=== PATIENT | male | born 1945 | race Caucasian/White ===

== ENCOUNTER 2022-05-04 15:57 | Outpatient (CLI) | payer MEDICARE, SELFPAY ==
[2022-05-04 10:13] LABS: Creatinine Urine 70.6 mg/dL
[2022-05-04 10:56] LABS: Chloride* 105 mmol/L (96-114)
[2022-05-04 10:57] LABS: Albumin* 3.4 g/dL (3.3-5.0); Sodium* 140 mmol/L (135-149)
[2022-05-04 10:58] LABS: Potassium* 3.6 mmol/L (3.6-5.1)
[2022-05-04 11:00] LABS: Alkaline Phosphatase* 75 U/L (40-150); Aspartate Amino Transferase* 23 U/L (12-35); Bilirubin Total* 0.7 mg/dL (0.1-1.5); Blood Urea Nitrogen* 23 mg/dL (7-30); Carbon Dioxide* 27 mmol/L (20-32); Cholesterol* 139 mg/dL (90-199); Creatinine* 1.6 mg/dL (0.5-1.5); Estimated Glomerular Filt Rate 45 ml/min; Total Protein* 6.5 g/dL (6.0-8.3)
[2022-05-04 11:01] LABS: Alanine Aminotransferase* 12 U/L (4-50); Glucose* 155 mg/dL (60-115); HDL Cholesterol* 26 mg/dL (>=40); LDL Cholesterol Calculated 67 mg/dL (<100); Triglycerides* 228 mg/dL (40-149)
[2022-05-04 11:31] LABS: PSA Screen* 0.86 ng/mL (0.10-4.00)
[2022-05-04 12:23] LABS: Microalbumin Creatinine Ratio 16920 mg/g (0-30); Microalbumin Urine 1195 mg/dL
== END 2022-05-04 15:58 | disposition home or self-care (01) ==
PROVIDERS: PCP Family Medicine; Visit Provider Family Medicine
DX: E78.5 Hyperlipidemia, unspecified (principal); E11.9 Type 2 diabetes mellitus without complications; Z12.5 Encounter for screening for malignant neoplasm of prostate; Z11.1 Encounter for screening for respiratory tuberculosis
CPT/HCPCS: 80053; 80061; 82043; 82570; 84153; 86480

== ENCOUNTER 2022-06-17 09:36 | Outpatient (CLI) | payer MEDICARE, SELFPAY ==
[2022-06-17 13:05] LABS: Chloride* 106 mmol/L (96-114)
[2022-06-17 13:06] LABS: Albumin* 4.2 g/dL (3.3-5.0); Potassium* 3.9 mmol/L (3.6-5.1); Sodium* 140 mmol/L (135-149)
[2022-06-17 13:08] LABS: Carbon Dioxide* 23 mmol/L (20-32); Creatinine* 1.7 mg/dL (0.5-1.5); Estimated Glomerular Filt Rate 42 ml/min
[2022-06-17 13:09] LABS: Blood Urea Nitrogen* 31 mg/dL (7-30); Calcium* 9.9 mg/dL (8.4-10.6); Glucose* 150 mg/dL (60-115); Phosphorus* 3.7 mg/dL (2.5-4.5)
== END 2022-06-17 09:37 | disposition home or self-care (01) ==
PROVIDERS: PCP Family Medicine; Visit Provider Internal Medicine Nephrology
DX: N18.32 Chronic kidney disease, stage 3b (principal)
CPT/HCPCS: 80069

== ENCOUNTER 2022-06-23 19:05 | Outpatient (CLI) | payer MEDICARE, SELFPAY ==
[2022-06-23 18:55] LABS: Creatinine Urine 56.8 mg/dL
[2022-06-23 19:09] LABS: Total Protein Urine 333 mg/dL
[2022-06-23 20:06] LABS: Collection Time Urine 24 Hours; Total Protein 24 Hour Urine 6327 mg/dL; Total Volume 24 Hour Urine 1900 ml; Urine Creatinine mg/24 Hour 0 mg/Day
== END 2022-06-23 19:06 | disposition home or self-care (01) ==
PROVIDERS: PCP Family Medicine; Visit Provider Internal Medicine Nephrology
DX: N18.30 Chronic kidney disease, stage 3 unspecified (principal)
CPT/HCPCS: 84156

== ENCOUNTER 2023-01-04 09:25 | Outpatient (CLI) | payer MEDICARE, SELFPAY | END 2023-01-04 09:26 | disposition home or self-care (01) | LOC: NFLDREF 01-05 05:57 | PROVIDERS: PCP Family Medicine; Referring Provider Family Medicine; Visit Provider Internal Medicine Nephrology | DX: I12.9 Hypertensive chronic kidney disease with stage 1 through stage 4 chronic kidney disease, or unspecified chronic kidney disease (principal); N18.32 Chronic kidney disease, stage 3b; E11.22 Type 2 diabetes mellitus with diabetic chronic kidney disease; R80.9 Proteinuria, unspecified; R82.71 Bacteriuria | CPT/HCPCS: 80069; 82043; 82570; 87086; 87186 ==

== ENCOUNTER 2023-06-09 12:50 | Outpatient (CLI) | payer MEDICARE, SELFPAY ==
--- OUTSIDE RECORDS SUMMARY | 2023-06-09 12:53 | XMS_ITS | Continuity of Care Document ---
Author Name Unknown Organization [facility] Address [address] [place] [address] Phone Care Team Providers Care Patient Manager Name Role Phone Mack Pandey MD Unavailable Unavailable Allergies, Adverse Reactions, Alerts Substance Reaction Status Criticality CEPHALEXIN MONOHYDRATE Dizziness Active No In formation Medications Medication Instructions Dosage Effective Dates (start - stop) Status Comments HUMIRA (unknown strength) Not Available - Active ASPIRIN (unknown strength) Not Available - Active NAPROXEN (unknown strength) Not Available - Active ATORVASTATIN CALCIUM (unknown strength) Not Available - Active LISINOPRIL-HYDROCHLO ROTHIAZIDE (unknown strength) Not Available - Active OMEPRAZOLE (unknown strength) Not Available - Active METFORMIN HCL (unknown strength) Not Available - Active FOLIC ACID (unknown strength) Not Available - No Longer Active LEVITRA (unknown strength) Not Available - No Longer Active TRAMADOL HCL (unknown strength) Not Available - No Longer Active METHOTREXATE (unknown strength) Not Available - No Longer Active Procedures Procedure Date Office/Outpatient Visit,Est, Mod 2017 Office/Outpatient Visit,Est, Mod 2017 Postop Followup Visit Remove Lumbar Spine Lamina, 1 Seg Remove Added Spine Lamina, 1 Seg 2015 Pa Assist Remove Lumbar Spine Lamina, 1 Seg Pa Assist Remove Added Spine Lamina, 1 S eg Office/Outpatient Visit,New, Mod 2015 X-Ray Exam Lwr Spine, Min 4 Views Advance Directives Directive Yes / No Effective Date File Name No Information Encounters Encounter Description Practice Location Reason(s) For Visit Diagnoses Date Provider Providers Copied on Encounter Office/Outpa tient Visit,Est, Mod [facility], [address], [place], [place], [id number] , [place] tel:[phone] [facility] Disorder of peripheral nervous system NOS 8 Transfeldt Ensor. [facility], [address], [facility] [address], [place], [id number], [place]. [phone] Referring Provider: Mack Spain, [facility] [place] [address], [place] [address], [place], [address]. tel:[phone] [facility], [address], [place], [place], [id number] , [place] tel:[phone] [facility] [place] Spinal stenosis, lumbar regionEncount er for other specified surgical aftercare Gloria Chavez. [facility], [address] [place] [address] [address], [place], [address], [place]. tel:[phone] Referring Provider: Mack Spain, [facility] [address], [facility] [address], [place], [address]. tel:[phone] [facility], [address], [place], [place], [id number] , [place] tel:[phone] [facility] No Information 6 Transfeldt Ensor. [facility] [place], [address], [place] [address], [place], [id number], [place]. tel:[phone] Referring Provider: Mack Spain, [facility] [place] [address], [address], [place], [address]. tel:[phone] Office/Outpa tient Visit,New, Mod [facility], [address], [facility], [place], [id number] , [place] tel:[phone] [facility] [place] Spinal stenosis, lumbar region 6 Transfeldt Ensor. [facility], [address], [place] [address], [place], [place], [id number], [place]. tel:[phone] Referring Provider: Colin Mcpherson [address] [place], [address]. tel:[phone] Family History Family Member Type Diagnosis Age At Onset No Information Payers Payer name Insurance type Covered republican [place] [id number] Medicare Colin [id number] 1 Social History Type Description Quantity Date Captured Comments Alcohol Use Details Caffeine Use Details Tobacco Use Status Never smoked tobacco 2017 Smoking Status Never smoker Sex Male Vital Signs Date / Time: Height Weight BMI Pulse Rate Blood Pressure Temperature Respiratory Rate Body Surface Area Head Circumference Head Circ. Percentile Wt./Kiran. Percentile BMI percentile Pulse Ox Inhaled Ox 12:57 PM 66.00 in 87.815 kg (193.60 lbs) 30.7 8 kg/m eter (2) 72 /min 136/59 mm[Hg] Chief Complaint And Reason For Visit No Information Reason For Referral Reason For Referral No Information Plan Of Treatment Date Type Action Status Future Order: Radiology Order AP /Lat/Flex/Ext Lumb (APLatFlExL), Ordered on: Ordered History Of Present Illness Encounter Date Complaint History Of Prese nt Illness No Information Functional Status Date Functional Assessmen t No Information Instructions Date Instruction Additional Infor mation Weight Management Education Rela neelima to Overweight Weight management: I nstructed to return to General Practitioner timeframe: 1 Month. Related to Overweight Weight Management Education Rela neelima to Overweight Weight management: I nstructed to return to General Practitioner timeframe: 1 Month. Related to Overweight Assessments Type Assessment Date No Information Patient Care Teams Name Effective Dates (start - stop) Status Members No Information
== END 2023-06-09 12:51 | disposition home or self-care (01) ==
LOC: RAD 12:51
PROVIDERS: PCP Family Medicine; Visit Provider Family Medicine
DX: R55 Syncope and collapse (principal); I51.7 Cardiomegaly; I34.0 Nonrheumatic mitral (valve) insufficiency; I07.1 Rheumatic tricuspid insufficiency; R42 Dizziness and giddiness; I48.91 Unspecified atrial fibrillation
CPT/HCPCS: 93306

== ENCOUNTER 2023-06-11 09:09 | Outpatient (CLI) | payer MEDICARE, SELFPAY ==
--- OUTSIDE RECORDS SUMMARY | 2023-06-11 15:45 | XMS_ITS | Continuity of Care Document ---
Author Name Unknown Organization [facility] Address [address] [place] [address] Phone Care Team Providers Care Metal Fence Erector Name Role Phone Mack Pandey MD Unavailable Unavailable Allergies, Adverse Reactions, Alerts Substance Reaction Status Criticality CEPHALEXIN MONOHYDRATE Dizziness Active No In formation Medications Medication Instructions Dosage Effective Dates (start - stop) Status Comments HUMIRA (unknown strength) Not Available - Active METFORMIN HCL (unknown strength) Not Available - Active OMEPRAZOLE (unknown strength) Not Available - Active LISINOPRIL-HYDROCHLO ROTHIAZIDE (unknown strength) Not Available - Active ATORVASTATIN CALCIUM (unknown strength) Not Available - Active NAPROXEN (unknown strength) Not Available - Active ASPIRIN (unknown strength) Not Available - Active METHOTREXATE (unknown strength) Not Available - No Longer Active TRAMADOL HCL (unknown strength) Not Available - No Longer Active LEVITRA (unknown strength) Not Available - No Longer Active FOLIC ACID (unknown strength) Not Available [...] Visit,Est, Mod [facility], [address], [place], [place], [id number] , [place] tel:[phone] [facility] - [place] Disorder of peripheral nervous system NOS 8 Transfeldt Ensor. [facility], [address], [facility] [address], [place], [id number], [place]. [phone] Referring Provider: Mack Spain, [facility] [place] [address], [place] [address], [address]. tel:[phone] [facility], [address], [place], [place], [id number] , [place] tel:[phone] [facility] [place] Spinal stenosis, lumbar regionEncount er for other specified surgical aftercare Gloria Chavez. [facility], [address] [place] [address] [address], [address], [place]. tel:[phone] Referring Provider: Mack Spain, [facility] [address], [facility] [address], [address]. tel:[phone] [facility], [address], [place], [place], [id number] , [place] tel:[phone] [facility] No Information 6 Transfeldt Ensor. [facility] [place], [address], [place] [address], [place], [id number], [place]. tel:[phone] Referring Provider: Mack Spain, [facility] [place] [address], [address], [place], [address]. tel:[phone] Office/Outpa tient Visit,New, Mod [facility], [address], [facility] [place], [id number] , [place] tel:[phone] [facility] [place] Spinal stenosis, lumbar region 6 Transfeldt Ensor. [facility], [address], [place] [address], [place], [place], [id number], [place]. tel:[phone] Referring Provider: Colin Mcpherson [address] [place], [address]. tel:[phone] Family History Family Member Type Diagnosis Age At Onset No Information Payers Payer name Insurance type Covered libertarian [place] [id number] Medicare Colin [id number] 1 Social History Type Description Quantity Date [...]
== END 2023-06-11 09:10 | disposition home or self-care (01) ==
LOC: NFLDREF 15:44
PROVIDERS: PCP Family Medicine; Referring Provider Family Medicine; Visit Provider Internal Medicine Nephrology
DX: E78.5 Hyperlipidemia, unspecified (principal); E11.22 Type 2 diabetes mellitus with diabetic chronic kidney disease; I12.9 Hypertensive chronic kidney disease with stage 1 through stage 4 chronic kidney disease, or unspecified chronic kidney disease; I10 Essential (primary) hypertension; R82.90 Unspecified abnormal findings in urine
CPT/HCPCS: 80053; 80061; 82043; 82310; 82570; 82728; 83540; 83550; 83970; 84100; 84153; 84550; 87086

== ENCOUNTER 2024-01-14 10:00 | Outpatient (CLI) | payer MEDICARE, SELFPAY ==
--- OUTSIDE RECORDS SUMMARY | 2024-01-17 19:00 | XMS_ITS | Clinical Summary ---
Author Name Unknown Organization [facility] Address [place], [place] [address] Care Team Providers Care Clinical Faculty Name Role Phone Shaka Naranjo MD Unavailable Keon Gregorio MD Primary Care Provider [phone] Allergies Active Allergy Reactions Criticality Noted Date Comments Cephalexin Dizziness 04/23/2010 Tetracycline *Unknown 06/09/2016 Pt states feels hot Medications Medication Sig Dispensed Refills Start Date End Date Status blood-glucose meter Dispense glucose meter, test strips and lancets covered by the patient insurance. Test 1 times per day. 1 Device 0 06/15/2013 Active atorvastatin (LIPITOR) 40 mg tabletIndications:H yperlipidemia Take 1 tablet by mouth once daily. 90 tablet 3 06/21/2015 Active metFORMIN (GLUCOPHAGE) 500 mg tabletIndications:D iabetes mellitus without complication (HC) Take 1 tablet by mouth 2 times daily with meals. 180 tablet 1 06/21/2015 Active clobetasol 0.05% TOPICAL (TEMOVATE) 0.05 % external solution 12/25/2015 Active betamethasone,augme nted dipropionate 0.05% (DIPROLENE LOTION 0.05%) lotion 09/27/2015 Active lisinopril-hydrochl orothiazide, 20-25 mg, (PRINZIDE, ZESTORETIC) 20-25 mg per tabletIndications:E ssential hypertension TAKE ONE TABLET BY MOUTH ONE TIME DAILY 90 tablet 0 06/01/2016 Active Cholecalciferol, Vitamin D3, 2,000 unit tablet Take 2,000 Units by mouth once daily. Active tamsulosin (FLOMAX) 0.4 mg capsuleIndications: BPH (benign prostatic hypertrophy) with urinary retention Take 1 capsule by mouth once daily after a meal. 30 capsule 11 06/17/2016 Active omeprazole (PRILOSEC) 40 mg Delayed-Release capsuleIndications: Gastroesophageal reflux disease without esophagitis TAKE ONE CAPSULE BY MOUTH ONE TIME DAILY BEFORE A MEAL 90 capsule 08/16/2016 Active triamcinolone 0.025% topical (ARISTOCORT) 0.025 % cream two times daily. 07/16/2021 Active neomycin-polymyxin- dexAMETHasone (MAXITROL) ophthalmic ointment APPLY TOPICALLY TO BOTH UPPER EYELIDS NEEDED 06/18/2022 Active ketoconazole 2% shampoo (NIZORAL) 2 % shampoo 1 APPLIC TOPICALLY TWICE A WEEK 06/16/2022 Active cyanocobalamin (VITAMIN B12) 500 mcg tablet once daily. Active cloNIDine HCL (CATAPRES) 0.1 mg tablet Take 0.1 mg by mouth two times daily. 05/06/2022 Active adalimumab 40 mg/0.4 mL pnkt Inject subcutaneous once daily. Active ibuprofen (ADVIL; MOTRIN) 600 mg tabletIndications:C arpal tunnel syndrome of left wrist Take 1 Tablet (600 mg) by mouth every 6 hours if needed for Pain. Maximum of 3200 mg in 24 hours. 30 Tablet 01/13/2023 Active Xarelto 20 mg tabletIndications:P ersistent atrial fibrillation (HC) TAKE 1 TABLET BY MOUTH EVERY DAY 90 Tablet 08/02/2023 Active Active Problems Problem Noted Date Diagnosed Date Carpal tunnel syndrome of left wrist 01/12/2023 Benign non-nodular prostatic hyperplasia with lower urinary tract symptoms 06/22/2016 Lumbar spinal stenosis 06/10/2016 HTN (hypertension) 06/10/2016 Controlled type 2 diabetes m ellitus without complication, without long-term current use of insulin 06/10/2016 Urethral stricture unspecified 06/10/2016 Routine adult health maintenance 08/08/2015 Overview: Colonoscopy 08/2015 normal repeat in 10 years Psoriasis 02/12/2012 Psoriatic arthritis 02/12/2012 REFUGIO (obstructive sleep apnea) 02/12/2012 Periodic limb movement disorder (PLMD) 2 Obesity, unspecified 12/10/2006 Other and unspecified hyperlipidemia 12/10/2006 Unspecified essential hypertension 12/10/2006 Esophageal reflux 12/10/2006 Encounters Date Type Department Care Team Description 01/13/2024 9:00 AM CDT Office Visit [facility] [address] [place] [address] Alli Tristan MD Arrived from Last 3 Months Immunizations Name Administration Dates Next Due Influenza A (H1N1), Inactiva neelima (Age >=3 Years) 10/10/2009 Influenza, High-dose Inactivated 05/28/2015,03/2014 Influenza, IIV3 (Age >=3 years) 06/15/20 13,06/22/2012,06/02/2011,2010,05/28/2009,07/10/2008,06/07/2007 Pneumococcal Poly,23-Valent (Pneumovax) 11/24/2011,06/06/1997 Pneumococcal conj 13-Valent (Prevnar 13) 02/08/2015 Td (Age >=7 Years) 09/06/2005,03/06/1997 Tdap 06/02/2011 Family History Medical History Relation Name Comments Anesthesia Problem Neg. 1 Cancer-colon Neg. 2 Cancer-prostate Neg. 3 Heart Disease Neg. 4 Relation Name Status Comments Neg. 1 Neg. 2 Neg. 3 Neg. 4 Social History Tobacco Use Types Packs/Day Years Used Date Smoking Tobacco: Never Smokeless Tobacco: Never Tobacco Cessation:Counseling Given: Yes Alcohol Use Standard Drinks/Week Comments Yes 0 (1 standard drink = 0.6 oz pur e alcohol) 1 to 2 drinks per day. Social Connections Answer Date Recorded Frequency of Communication with Friends and Fami ly Not on file 01/09/2022 Sex and Gender Information Value Date Recorded Sex Assigned at Not on file Gender Identity Not on file Sexual Orientation Not on file Obstetrics History Last Filed Vital Signs Vital Sign Reading Time Taken Comments Blood Pressure 160/84 01/13/2023 10:32 AM CDT Pulse 53 01/13/2023 10:32 AM CDT Temperature 37 ??C (98.6 ??F) 01/13/2023 10: 02 AM CDT Respiratory Rate 18 01/13/2023 10:3 2 AM CDT Oxygen Saturation 98% 01/13/2023 10: 32 AM CDT Inhaled Oxygen Concentration - - Weight 78.3 kg (172 lb 11.2 oz) 01/13/2023 8:08 AM CDT Height 168.9 cm (5' 6.5) 06/10/2016 7:37 PM CDT Body Mass Index 27.46 06/10/2016 7:37 PM CDT Plan of Treatment Health Maintenance Due Date Last Done Comments Depression screening for age 12+ 1958 Hepatitis C screening for ag e 18-79 1964 Zoster (shingles) series for age 50+ (1 of 2) 1965 Medicare Wellness for age 65+ 2011 BMI (ht and wt on same day) for age 18+ 12/25/2016 12/26/2015 Tetanus booster 06/02/2021 06/02/2011, 09/2005, 03/06/1997 COVID-19 vaccine series ( season) 2023 06/03/2021, 01/17/2021, 12/27/2020 Influenza for age 65+ 05/07/2024 05/28/2015 , 06/12/2014, 06/15/2013, Additional history exists Tdap Completed 06/02/2011 Pneumococcal series for age 65+ Completed 02/08/2015, 11/24/2011, 06/06/1997 Advance Directives * Full Code (Latest Code Status on File) Date Activated Date Inactivated Comments 01/13/2023 6:52 AM 01/13/2023 1:46 PM Question Answer Comments Code Status Discussion: Not Discussed * Full Code Date Activated Date Inactivated Comments 06/10/2016 4:19 PM 06/12/2016 6:48 PM * Full Code Date Activated Date Inactivated Comments 06/10/2016 8:59 AM 06/10/2016 4:19 PM Question Answer Comments Code Status Discussion: Not Discussed Care Teams Clinical Faculty Relationship Specialty Start Date End Date Keon Gregorio MD PCP - General Family Practice 05/05/16 Shaka Naranjo MD Rheumatology Rheumatology 08/22/12
--- OUTSIDE RECORDS SUMMARY | 2024-01-17 19:00 | XMS_ITS | Continuity of Care Document ---
Author Name Unknown Organization [facility] Address [address] [place] [address] Phone Care Team Providers Care Administrative Technician Name Role Phone Mack Pandey MD Unavailable Unavailable Allergies, Adverse Reactions, Alerts Substance Reaction Status Criticality CEPHALEXIN MONOHYDRATE Dizziness Active No In formation Medications Medication Instructions Dosage Effective Dates (start - stop) Status Comments HUMIRA (unknown strength) Not Available - Active NAPROXEN (unknown strength) Not Available - Active ASPIRIN (unknown strength) Not Available - Active METFORMIN HCL (unknown strength) Not Available - Active OMEPRAZOLE (unknown strength) Not Available - Active LISINOPRIL-HYDROCHLO ROTHIAZIDE (unknown strength) Not Available - Active ATORVASTATIN CALCIUM (unknown strength) Not Available - Active LEVITRA (unknown strength) Not Available - [...] Visit,Est, Mod [facility], [address], [place], [place], [id number] , [place] tel:[phone] [facility] Disorder of peripheral nervous system NOS 8 Transfeldt Ensor. [facility], [address], [facility] [address], [place], [id number], [place]. [phone] Referring Provider: Mack Spain, [facility] [place] [address], [place] [address], [place], [address]. tel:[phone] [facility], [address], [place], [place], [id number] , [place] tel:[phone] [facility] Spinal stenosis, lumbar regionEncount er for other specified surgical aftercare Gloria Chavez. [facility], [address] [place] [address] [address], [place], [address], [place]. tel:[phone] Referring Provider: Mack Spain, [facility] [address], [facility] [address], [place], [address]. tel:[phone] [facility], [address], [place], [place], [id number] , [place] tel:[phone] [facility] No Information 6 Transfeldt Ensor. [facility] [place], [address], [place] [address], [place], [address], [place]. tel:[phone] Referring Provider: Mcak Spain, [facility] [place] [address], [address], [place], [address]. tel:[phone] Office/Outpa tient Visit,New, Mod [facility], [address], [facility], [place], [id number] , [place] tel:[phone] [facility] Spinal stenosis, lumbar region 6 Transfeldt Ensor. [facility], [address], [facility] [address], [place], [place], [id number], [place]. tel:[phone] Referring Provider: Ismael Dominguez, Colin [facility] [address], [place], [address]. tel:[phone] Family History Family Member Type Diagnosis Age At Onset No Information Payers Payer name Insurance type Covered democrat [place] [id number] Medicare Colin [id number] 1 Social History Type Description Quantity Date [...]
--- OUTSIDE RECORDS SUMMARY | 2024-01-17 19:00 | XMS_ITS | Referral Summary ---
Author Name Unknown Organization [facility] Address [address] [place] [address] Care Team Providers Care Music Cataloguer Name Role Phone Unavailable Primary Care Provider Unavailabl e Source Comments Patient records contain information from all sites at [facility]. For routine questions regarding patient records, call [phone] during business hours, M-F 8:00 AM - 5:00 PM Central Time. Record requests for emergency care only can be directed to [phone] at any time.[facility] Allergies Active Allergy Reactions Criticality Noted Date Comments Cephalexin Other (see comments) 04/23/2010 Tetracycline Other (see comments),Rash 06/09/2016 Pt states feels hot Pt states feels hot Medications Medication Sig Dispensed Refills Start Date End Date Status aspirin [address] tablet Take by mouth. Active atorvastatin (LIPITOR) 40 mg tablet Take 40 mg by mouth. 06/21/2015 Active adalimumab, citrate free, (HUMIRA PEN) 40 mg/0.4 mL injection Inject under the skin. Active miscellaneous medical supply misc Once 02/07/2018 Active albuterol 90 mcg/actuation inhaler Inhale 2 puffs. 08/19/2018 Active betamethasone, augmented, (DIPROLENE) 0.05 % lotion 09/27/2015 Active blood-glucose meter kit Dispense glucose meter, test strips and lancets covered by the patient insurance. Test 1 times per day. 06/15/2013 Active cholecalciferol (VITAMIN D3) 50 mcg (2,000 Unit) tablet Take 2,000 Units by mouth. Active clobetasoL (TEMOVATE) 0.05 % external solution Twice A Day 12/25/2015 Active cloNIDine (CATAPRES) 0.1 mg tablet 01/29/2022 Active codeine-guaiFENesi n (ROBITUSSIN-AC) 10-100 mg/5 mL liquid Take 10 mL by mouth. 08/22/2018 Active cyanocobalamin (VITAMIN B12) 500 mcg tablet daily. Active fexofenadine (MERCED) 180 mg tablet Daily 08/01/2019 Active gabapentin (NEURONTIN) 300 mg capsule Take 300 mg by mouth daily. 07/05/2017 Active ketoconazole (NIZORAL) 2 % shampoo Once 05/27/2021 Active lisinopril-hydroCH LOROthiazide (PRINZIDE,ZESTORET IC) 20-12.5 mg per tablet Every Morning Active metFORMIN (GLUCOPHAGE) 500 mg tablet 500 mg. Twice per day 06/21/2015 Active oxyCODONE-acetamin ophen (PERCOCET) 5-325 mg per tablet Take 1-2 tablets by mouth. 06/12/2016 Active rivaroxaban (XARELTO) 20 mg tablet Take 20 mg by mouth. 12/30/2021 Active tamsulosin (FLOMAX) 0.4 mg 24 hr capsule Take 0.4 mg by mouth. 06/17/2016 Active triamcinolone (KENALOG) 0.025 % cream Twice A Day 07/16/2021 Active omeprazole (PriLOSEC) [address] capsule Take by mouth daily. 02/08/2022 Active neomycin-polymyxin B-dexameth (MAXITROL) 3.5 mg/g-10,000 unit/g-0.1 % ophthalmic ointment APPLY TOPICALLY TO BOTH UPPER EYELIDS NEEDED 06/18/2022 Active carvediloL (COREG) 25 mg tablet Take 1 tablet (25 mg total) by mouth 2 (two) times a day with meals. 180 tablet 2 07/27/2023 Active empagliflozin (Jardiance) 10 mg tablet Take 1 tablet (10 mg total) by mouth every morning before breakfast. 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 Acute Cystitis With Hematuria 06/14/2023 Diabetes Mellitus Type 2 With Diabetic Nephropat hy 02/16/2023 Chronic Kidney Disease (CKD) , Stage 3b Glomerular Filtration Rate (GFR) 30 To 44 02/16/2023 Atrial Fibrillation Unspecified 02/16/2023 02/16/2023 Foot Drop Right 02/03/2022 Carpal Tunnel Syndrome Left 02/03/2022 Dyslipidemia 07/05/2017 02/16/2023 Social History Tobacco Use Types Packs/Day Years Used Date Smoking Tobacco: Never Smokeless Tobacco: Never Tobacco Cessation:Counseling Given: Not Answered Alcohol Use Standard Drinks/Week Comments Yes 0 (1 standard drink = 0.6 oz pur e alcohol) Couple drinks every day Nutrition Answer Date Recorded Nutrition: EVOO Fat Source Unknown 05/21 Nutrition: Servings of Fruits/Vegetables per Day Not on file 05/21/2021 Dental Answer Date Recorded Dental: Regular Dentist Unknown 05/21/20 Sex and Gender Information Value Date Recorded Sex Assigned at Not on file Gender Identity Not on file Sexual Orientation Not on file Last Filed Vital Signs Vital Sign Reading Time Taken Comments Blood Pressure 152/78 06/14/2023 2:43 PM CDT Pulse 57 06/14/2023 2:43 PM CDT Temperature - - Respiratory Rate 14 06/13/2021 9:06 AM CDT Oxygen Saturation 96% 06/13/2021 10: 42 AM CDT Inhaled Oxygen Concentration - - Weight 75.7 kg (166 lb 14.2 oz) 06/14/2023 2:43 PM CDT Height 167.6 cm (5' 5.98) 06/14/2023 2:43 PM CD T Body Mass Index 26.95 06/14/2023 2:43 PM CDT Plan of Treatment Not on file Procedures Procedure Name Priority Date/Time Associated Diagnosis Comments EXTI COMPREHENSIVE METABOLIC PANEL, S/P Routine 05/11/2018 10:01 AM CDT from Last 3 Months or Most Recently Relevant to Health Maintenance
--- OUTSIDE RECORDS SUMMARY | 2024-01-17 19:00 | XMS_ITS ---
Author Name Unknown Organization [facility] Address [address] [place] [address] Care Team Providers Care Recreation Worker Name Role Phone Unavailable Unavailable Unavailable Surgery Details Not on file Complications Check Surgery Details section. Procedure Estimated Blood Loss Check Surgery Details section. Procedure Findings Check Surgery Details section. Procedure Specimens Taken Check Surgery Details section.
--- OUTSIDE RECORDS SUMMARY | 2024-01-17 19:00 | XMS_ITS | Clinical Summary ---
Author Name Unknown Organization [facility] Address [address] [place] [address] Care Team Providers Care Soaping Department Supervisor Name Role Phone Unavailable Primary Care Provider Unavailabl e Source Comments Patient records contain information from all sites at [facility]. For routine questions regarding patient records, call [phone] during business hours, M-F 8:00 AM - 5:00 PM Central Time. Record requests for emergency care only can be directed to [phone] at any time.[facility] Allergies Active Allergy Reactions Criticality Noted [...] 06/14/2023 2:43 PM CDT Plan of Treatment Health Maintenance Due Date Last Done Comments Diabetic Office Visit with Foot Exam 1946 Dilated Eye Exam 1946 Hemoglobin A1C 1946 Hepatitis C Screening 1946 Urine Albumin 1946 Zoster Vaccines (1 of 2) 1965 Creatinine Level (Kidney Function Test) 05/11/2019 05/11/2018 Potassium Level 05/11/2019 05/11/2018 Sodium Level 05/11/2019 05/11/2018 COVID-19 Vaccine ( season) 2023 06/03/2021, 01/17/2021, 12/27/2020 Depression Screening (Annual PHQ-2) 09/06/2023 Fall Risk Screen (Annual) 09/06/2023 Office Visit for Blood Pressure Check / Re-check 09/14/2023 06/14/2023 DTaP,Tdap,and Td Vaccines (3 - Td or Tdap) 04/30/2031 04/30/2021, 06/02/2011 Pneumococcal vaccine (65+ years) Completed 05/06/2022, 06/01/2016, 02/08/2015, Additional history exists Influenza Vaccine Completed 06/21/2023, , 09/04/2019, Additional history exists HPV Vaccines Aged Out No longer eligi ble based on patient's age to complete this topic Procedures Procedure Name Priority Date/Time Associated Diagnosis Comments EXTI COMPREHENSIVE METABOLIC PANEL, S/P Routine 05/11/2018 10:01 AM CDT from Last 3 Months or Most Recently Relevant to Health Maintenance
== END 2024-01-14 10:01 | disposition home or self-care (01) ==
LOC: NFLDREF 01-17 18:58
PROVIDERS: PCP Family Medicine; Referring Provider Family Medicine; Visit Provider Internal Medicine Nephrology
DX: N40.1 Benign prostatic hyperplasia with lower urinary tract symptoms (principal); I10 Essential (primary) hypertension; E78.5 Hyperlipidemia, unspecified; L40.52 Psoriatic arthritis mutilans; Z79.899 Other long term (current) drug therapy
CPT/HCPCS: 80061; 80069; 82043; 82570; 82728; 83540; 83550; 83970; 84450; 84460; 84550; 87086

== ENCOUNTER 2024-06-26 08:52 | Outpatient (CLI) | payer MEDICARE, SELFPAY ==
--- OUTSIDE RECORDS SUMMARY | 2024-06-27 16:13 | XMS_ITS | Clinical Summary ---
Author Organization [facility] Address [address] [place] [address] Care Team Providers Care Real Estate Portfolio Manager Name Role Phone Unavailable Primary Care Provider Unavailabl e Source Comments Patient records contain information from all sites at [facility]. For routine questions regarding patient records, call [phone] during business hours, M-F 8:00 AM - 5:00 PM Central Time. Record requests for emergency care only can be directed to [phone] at any time.[facility] Allergies Active Allergy Reactions Criticality Noted Date Comments Cephalexin Other (see comments) 04/23/2010 Tetracycline Other (see comments),Rash 06/09/2016 Pt states feels hot Pt states feels hot Medications * This document contains information received from the source organization and may not represent a complete record from that organization. aspirin [address] tablet Take by mouth. Activ e atorvastatin (LIPITOR) 40 mg tablet Take 40 mg by mouth. 5 Active adalimumab, citrate free, (HUMIRA PEN) 40 mg/0.4 mL injection Inject under the skin. Active miscellaneous medical supply misc Once 8 Active albuterol 90 mcg/actuation inhaler Inhale 2 puffs. 8 Active betamethasone, augmented, (DIPROLENE) 0.05 % lotion 6 Active blood-glucose meter kit Dispense glucose meter, test strips and lancets covered by the patient insurance. Test 1 times per day. 3 Active cholecalciferol (VITAMIN D3) 50 mcg (2,000 Unit) tablet Take 2,000 Units by mouth. Active clobetasoL (TEMOVATE) 0.05 % external solution Twice A Day 6 Active cloNIDine (CATAPRES) 0.1 mg tablet 2 Active codeine-guaiFEN esin (ROBITUSSIN-AC) 10-100 mg/5 mL liquid Take 10 mL by mouth. 8 Active cyanocobalamin (VITAMIN B12) 500 mcg tablet daily. Activ e fexofenadine (MERCED) 180 mg tablet Daily 9 Active gabapentin (NEURONTIN) 300 mg capsule Take 300 mg by mouth daily. 7 Active ketoconazole (NIZORAL) 2 % shampoo Once 1 Active lisinopril-hydr oCHLOROthiazide (PRINZIDE,ZESTO RETIC) 20-12.5 mg per tablet Every Morning Ac tive metFORMIN (GLUCOPHAGE) 500 mg tablet 500 mg. Twice per day 5 Active oxyCODONE-aceta minophen (PERCOCET) 5-325 mg per tablet Take 1-2 tablets by mouth. 6 Active rivaroxaban (XARELTO) 20 mg tablet Take 20 mg by mouth. 2 Active tamsulosin (FLOMAX) 0.4 mg 24 hr capsule Take 0.4 mg by mouth. 6 Active triamcinolone (KENALOG) 0.025 % cream Twice A Day 1 Active omeprazole (PriLOSEC) [address] capsule Take by mouth daily. 2 Active neomycin-polymy hermila B-dexameth (MAXITROL) 3.5 mg/g-10,000 unit/g-0.1 % ophthalmic ointment APPLY TOPICALLY TO BOTH UPPER EYELIDS NEEDED 2 Active carvediloL (Coreg) 25 mg tablet TAKE ONE TABLET (25 mg total) BY MOUTH TWICE DAILY @ 9AM & 5PM WITH MEALS 180 tablet 3 4 Active Jardiance 10 mg tablet TAKE ONE TABLET (10 mg total) BY MOUTH DAILY AT 9AM EVERY MORNING BEFORE BREAKFAST 90 tablet 3 4 Active Active Problems Problem Noted Date Diagnosed [...] Date Recorded Dental: Regular Dentist Unknown 05/21/20 21 Sex and Gender Information Value Date Recorded Sex Assigned at Not on file Legal Sex Male 12:59 PM CDT Gender Identity Not on file Sexual Orientation Not on file Last Filed Vital Signs Vital Sign Reading Time Taken Comments Blood Pressure 168/76 01/24/2024 1:15 PM CDT Pulse 79 01/24/2024 1:15 PM CDT Temperature - - Respiratory Rate 14 06/13/2021 9:06 AM CDT Oxygen Saturation 96% 06/13/2021 10: 42 AM CDT Inhaled Oxygen Concentration - - Weight 75.2 kg (165 lb 12.6 oz) 01/24/2024 1:15 PM CDT Height 167.6 cm (5' 5.98) 06/14/2023 2:43 PM CD T Body Mass Index 26.77 06/14/2023 2:43 PM CDT Plan of Treatment Health Maintenance Due Date Last Done Comments Diabetic Office Visit with Foot Exam 1946 Dilated Eye Exam 1946 Hemoglobin A1C 1946 Hepatitis C Screening 1946 Urine Albumin 1946 Zoster Vaccines (1 of 2) 1965 Hepatitis B Vaccines (1 of 3 - Risk 3-dose series) 2006 Creatinine Level (Kidney Function Test) 05/11/2019 05/11/2018 Potassium Level 05/11/2019 05/11/2018 Sodium Level 05/11/2019 05/11/2018 RSV vaccine - (32-36 weeks) or 60+ years (1 - 1-dose 75+ series) 2021 Depression Screening (Annual PHQ-2) 09/06/2023 Fall Risk Screen (Annual) 09/06/2023 Office Visit for Blood Pressure Check / Re-check 04/25/2024 01/24/2024 COVID-19 Vaccine ( - 2023- season) 2024 06/03/2021, 01/17/2021, 12/27/2020 Influenza Vaccine (#1) 2024 , 08/21/2021, 09/04/2019, Additional history exists DTaP,Tdap,and Td Vaccines (3 - Td or Tdap) 04/30/2031 04/30/2021, 06/02/2011 Pneumococcal vaccine (65+ years) Completed 05/06/2022, 06/01/2016, 02/08/2015, Additional history exists HPV Vaccines Aged Out No longer eligi ble based on patient's age to complete this topic Insurance [facility]
--- OUTSIDE RECORDS SUMMARY | 2024-06-27 16:13 | XMS_ITS | Referral Summary ---
Author Organization [facility] Address [address] [place] [address] Care Team Providers Care Distance Education Teacher Name Role Phone Unavailable Primary Care Provider Unavailabl e Source Comments Patient records contain information from all sites at [facility]. For routine questions regarding patient records, call [phone] during business hours, M-F 8:00 AM - 5:00 PM Central Time. Record requests for emergency care only can be directed to [phone] at any time.[facility] Allergies Active Allergy Reactions Criticality Noted Date [...] CDT Plan of Treatment Not on file Insurance [facility]
--- OUTSIDE RECORDS SUMMARY | 2024-06-27 16:13 | XMS_ITS | Continuity of Care Document ---
Author Organization [facility] Address [address] [place] [address] Phone Care Team Providers Care Streetsweeper Operator Name Role Phone Mack Pandey MD Unavailable [...] Visit,Est, Mod [facility], [address], [place], [place], [id number] , [place] tel:[phone] [facility] - [place] Disorder of peripheral nervous system NOS 8 Transfeldt Ensor. [facility], [address], [facility] [address], [place], [place], [id number], [place]. [phone] Referring Provider: Mack Spain, [facility] [place] [address], [facility] [address], [place], [address]. tel:[phone] [facility], [address], [place], [place], [id number] , [place] tel:[phone] [facility] - [place] Spinal stenosis, lumbar regionEncount er for other specified surgical aftercare Gloria Chavez. [facility], [address] [place] [address] [address], [place], [address], [place]. tel:[phone] Referring Provider: Mack Spain, [facility] [address], [facility] [address], [place], [address]. tel:[phone] [facility], [address], [place], [place], [id number] , [place] tel:[phone] [facility] No Information Transfeldt Ensor. [facility] [place], [address], [facility] [address], [place], [id number], [place]. tel:[phone] Referring Provider: Mack Spain, [facility] [place] [address], [address], [place], [address]. tel:[phone] Office/Outpa tient Visit,New, Mod [facility], [address], [place], [place], [id number] , [place] tel:[phone] [facility] - [place] Spinal stenosis, lumbar region 6 Transfeldt Ensor. [facility], [address], [facility] [address], [place], [place], [id number], . tel:[phone] Referring Provider: Ismael Dominguez, [facility] [address], [place], [address]. tel:[phone] Family History Family Member Type Diagnosis Age At Onset No Information Payers Payer name Insurance type Covered [id number] Medicare [place] [id number] 1 Social History Type Description Quantity Date [...]
--- OUTSIDE RECORDS SUMMARY | 2024-06-27 16:13 | XMS_ITS | Clinical Summary ---
Author Organization [email or web address] Address [place], [place] [address] Care Team Providers Care Avid Editor Name Role Phone Shaka Naranjo MD Unavailable [phone] Keon Gregorio MD Primary Care Provider [phone] Allergies Active Allergy Reactions Criticality Noted Date [...] MOUTH EVERY DAY 90 Tablet 08/02/2023 Active carvediloL (COREG) 25 mg tabletIndications:C hronic atrial fibrillation (HC) Take 1 Tablet (25 mg) by mouth two times daily with meals. 02/17/2024 Active empagliflozin (JARDIANCE) 10 mg tabletIndications:C hronic atrial fibrillation (HC) Take 1 Tablet (10 mg) by mouth once daily. 02/17/2024 Active Active Problems Problem Noted Date Diagnosed Date Carpal tunnel syndrome of left wrist 01/12/2023 Benign non-nodular prostatic hyperplasia with lower urinary tract symptoms 06/22/2016 Lumbar spinal stenosis 06/10/2016 HTN (hypertension) 06/10/2016 Controlled type 2 diabetes m ellitus without complication, without long-term current use of insulin 06/10/2016 Urethral stricture unspecified 06/10/2016 Routine adult health maintenance 08/08/2015 Overview (08/08/2015): Colonoscopy 08/2015 normal repeat in 10 years Psoriasis 02/12/2012 Psoriatic arthritis 02/12/2012 REFUGIO (obstructive sleep apnea) 02/12/2012 Periodic limb movement disorder (PLMD) 2 Obesity, unspecified 12/10/2006 Other and unspecified hyperlipidemia 12/10/2006 Unspecified essential hypertension 12/10/2006 Esophageal reflux 12/10/2006 Immunizations Name Administration Dates Next Due Influenza [...] 12/26/2015 Tetanus booster 06/02/2021 06/02/2011, 09/2005, 03/06/1997 RSV vaccine for adults or (1 - 1-dose 75+ series) 2021 COVID-19 vaccine series ( season) 2024 06/03/2021, 01/17/2021, 12/27/2020 Influenza for age 65+ [...] Code Status Discussion: Not Discussed Care Teams Avid Editor Relationship Specialty Start Date End Date Keon Gregorio MD PCP - General Family Practice 05/05/16 Shaka Naranjo MD Rheumatology Rheumatology 08/22/12
--- OUTSIDE RECORDS SUMMARY | 2024-06-27 16:13 | XMS_ITS ---
Author Organization [facility] Address [address] [place] [address] Care Team Providers Care Hot Walker Name Role Phone Unavailable Unavailable Unavailable Surgery Details Not on file Complications Check Surgery Details section. Procedure Estimated Blood Loss Check Surgery Details section. Procedure Findings Check Surgery Details section. Procedure Specimens Taken Check Surgery Details section.
== END 2024-06-26 08:53 | disposition home or self-care (01) ==
LOC: NFLDREF 06-27 16:11
PROVIDERS: PCP Family Medicine; Referring Provider Family Medicine; Visit Provider Family Medicine
DX: E11.9 Type 2 diabetes mellitus without complications (principal); I10 Essential (primary) hypertension; E78.5 Hyperlipidemia, unspecified; N18.32 Chronic kidney disease, stage 3b; K21.9 Gastro-esophageal reflux disease without esophagitis
CPT/HCPCS: 80053; 80061; 82043; 82570

== ENCOUNTER 2024-12-22 09:23 | Outpatient (CLI) | payer MEDICARE, SELFPAY | END 2024-12-22 09:24 | disposition home or self-care (01) | LOC: NFLDREF 12-26 17:29 | PROVIDERS: PCP Family Medicine; Referring Provider Family Medicine; Visit Provider Family Medicine | DX: E11.9 Type 2 diabetes mellitus without complications (principal); N40.0 Benign prostatic hyperplasia without lower urinary tract symptoms; Z12.5 Encounter for screening for malignant neoplasm of prostate | CPT/HCPCS: G0103 ==

== ENCOUNTER 2025-02-27 12:30 | Outpatient (RCR) | payer MEDICARE, SELFPAY ==
--- NOTE | 2025-02-06 13:10 | PT.OPEX ---
PT [place] Outpatient Eval PT [facility] Outpatient Eval Start: 02/06/25 07:31 Freq: Status: Active Protocol: Document 02/06/25 07:33 CRP (Rec: 02/06/25 13:07 CRP [id number]) E-signed By Ghulam Olvera PT Physical Therapy Outpatient Evaluation Insurance Information Recert Due Date 05/07/25 Insurance Name Medicare B,are Medical Diagnosis Lumbar DDD Referring MD Dr Melton Subjective Subjective Pt reports LBP, R side especially and into the R gluteals. 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 Had spine surgery to clean up arthritis about 7-8 years ago. This surgery did not go well. Had 5 years of numbness into both legs. Sensation did come back. 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 AFO use on R. Current pain increases with going sit to stand, walking, standing. Sitting is fine. Lying down is fine. R TKA about 12 years ago. Current Work Status Retired Objective Other/Pertinent Trunk ROM: Flex mod dec, Ext mod dec with pain, R SB Objective jennifer dec with R LBP, L SB WNL Hip ROM WNL bilat MMT: L WNL, R hip flex 4-/5, Knee ext 4-/5, R ankle DF - unable. Lumbopelvic flex 4-/5 Palpation: palpable pain R glut med/min SLR shows adverse neurodynamics bilat Segmental testing - unable sec to pain Functional Test Mod Oswestry Performed & Score Assessment Assessment/ Pt presents to the clinic with long standing issues of Impression LBP. Pts signs and sxs are consistent with lumbar spine DDD and resulting pain radiating into the R gluteals. Skilled PT is necessary to incorporate ther ex, nm jv, manual therapy and pt education to decrease pain and improve functional mobility. 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 Pt will be independent with HEP in 6 weeks. Goals 2. Pt will complete all transfers safely and without pain in 10 weeks. 3. Pt will walk for exer x 15 minutes with 75% decrease in pain in 12 weeks. Coordination/ Referral Source Communication With Treatment Plan/ Gait Training,Joint Mobilization,Manual Therapy, Direct Interventions Neuromuscular Re-ed,Self-Care/Home Management, Therapeutic Activities,Therapeutic Exercises Frequency/Duration 1-2x/wk for 12 weeks Patient Will Be Completion of LTG(s),Skills Plateau,Independent w/HEP, Discharged From Independently Progressing Therapy Evaluation Billing Untimed Code 40 Treatment Minutes Complexity Moderate Certification Information Initial 02/06/25 Certification Date Ending Certification 05/07/25 Date Provider Signature Yes Required Provider Signature POC & Medical Necessity Shows Agreement With Physician NPI Number Write NPI# Here Physician Comment/ : Change Physician Signature Please Sign/Date Here & Date Requested
== END 2025-03-20 11:38 | disposition home or self-care (01) ==
PROVIDERS: PCP Family Medicine; Visit Provider Orthopaedic Surgery Sports Medicine
DX: M51.360 Other intervertebral disc degeneration, lumbar region with discogenic back pain only (principal); Z51.89 Encounter for other specified aftercare
CPT/HCPCS: 97110; 97140; 97162

== ENCOUNTER 2025-05-28 09:30 | Outpatient (CLI) | payer MEDICARE, SELFPAY | END 2025-05-28 09:31 | disposition home or self-care (01) | LOC: NFLDREF 05-31 09:35 | PROVIDERS: PCP Family Medicine; Referring Provider Family Medicine; Visit Provider Family Medicine | DX: E11.9 Type 2 diabetes mellitus without complications (principal) | CPT/HCPCS: 80053; 80061; 82043; 82570 ==

== ENCOUNTER 2025-06-06 08:47 | Outpatient (CLI) | payer MEDICARE, SELFPAY | END 2025-06-06 08:48 | disposition home or self-care (01) | LOC: RAD 08:48 | PROVIDERS: PCP Family Medicine; Visit Provider Family Medicine | DX: R01.1 Cardiac murmur, unspecified (principal); I51.7 Cardiomegaly; I35.0 Nonrheumatic aortic (valve) stenosis; I34.81 Nonrheumatic mitral (valve) annulus calcification; I07.1 Rheumatic tricuspid insufficiency | CPT/HCPCS: 93306 ==